=== PATIENT | female | born 1975 | race Caucasian/White ===

== ENCOUNTER 2019-04-01 14:32 | Inpatient (IN) | payer MEDICAID ==
[~2019-04-01] VITALS: Ht 152.4 cm; Wt 72.6 kg
[2019-04-01 14:40] VITALS: BP 134/73
--- NOTE | 2019-04-01 14:50 | NUR ---
PATIENT AMBULATED TO ER BED 1.
--- NOTE | 2019-04-01 14:55 | NUR ---
PT IS A 43 Y/O FEMALE WHO PRESENTS TO THE ED C/O RLQ ABD PAIN. PT STATES THAT SHE HAS BEEN EXPERIENCING SYMPTOMS X4 DAYS. PT REPORT 10/10 ACHING RLQ ABD PAIN THAT RADIATES TO THE BACK AND HEADACHE. PT DENIES CP, SOB, N/V/D. PT AWAKE AND ALERT, RR EVEN/UNLABORED. PT REPOSITIONED FOR COMFORT, BED IN LOWEST POSITION. ER MD DR. WILSON NOTIFIED. WILL CONTINUE TO MONITOR. DENIES PMH NKA
[2019-04-01 15:29] LABS: APPEARANCE,URINE HAZY (CLEAR); BILIRUBIN,URINE NEGATIVE (NEGATIVE); BLOOD, URINE 3+ (NEGATIVE); COLOR,URINE YELLOW (YELLOW); LEUKOCYTE ESTERASE ,URINE 1+ (NEGATIVE); NITRITE, URINE NEGATIVE (NEGATIVE); UGLUCOSE TRACE (NEGATIVE)
[2019-04-01] MEDS ORDERED: MORPHINE SULFATE 2 MG/ML SYR IVP ONE (15:40)
[2019-04-01] MEDS ORDERED: NACL 0.9% 1,000 ML IV ONE (15:40)
[2019-04-01] MEDS ORDERED: ONDANSETRON 4 MG/2 ML VIAL IVP ONE (15:40)
[2019-04-01] MEDS ORDERED: KETOROLAC 30 MG/ML VIAL IVP ONE (15:40)
[2019-04-01] MEDS ORDERED: NACL 0.9% 1,000 ML IV SCH (15:40)
[2019-04-01 15:41] LABS: BARBITURATE, URINE NEG. ng/ml (NEG <=200); BENZODIAZEPINE, URINE NEG. ng/mL (NEG <=200); CANNABINOID, URINE NEG. ng/mL (NEG <=50); COCAINE, URINE NEG. ng/mL (NEG <=300); OPIATE, URINE NEG. ng/mL (NEG <=2000); PHENCYCLIDINE SCREEN,URINE NEG. ng/mL (NEG <=25)
--- NOTE | 2019-04-01 15:50 | NUR ---
PT IS RESTING IN BED WITH EYE OPEN. PT STATES SHE IS FEELING BETTER. PAIN 5/10. VSS.
[2019-04-01 15:55] LABS: RBC,URINE 20-50 /HPF (0-5); WBC,URINE 16-25 (MOD) /HPF (0-5)
[2019-04-01 16:27] LABS: BASOPHILS % (AUTO) 0.4 % (0.0-2.0); EOSINOPHILS % (AUTO) 0.1 % (0.0-4.0); HEMATOCRIT 37.3 % (36-48); HEMOGLOBIN 12.5 g/dL (12.0-16.0); LYMPHOCYTES # (AUTO) 1.2 K/uL (2.5-16.5); LYMPHOCYTES % (AUTO) 13.2 % (20.5-51.1); MEAN CORPUSCULAR HEMOGLOBIN 31 pg (27-31); MEAN CORPUSCULAR HGB CONC 34 g/dL (33-37); MEAN CORPUSCULAR VOLUME 91.2 fL (80-94); MONOCYTES # (AUTO) 1.1 K/uL (0.8-1.0); MONOCYTES % (AUTO) 11.2 % (1.7-9.3); NEUTROPHILS # (AUTO) 7.1 K/uL (1.8-7.7); NEUTROPHILS % (AUTO) 75.1 % (42.2-75.2); PLATELET COUNT (AUTO) 237 K/uL (140-450); RED BLOOD CELL COUNT(AUTO) 4.09 MIL/uL (4.20-5.40); RED CELL DISTRIBUTION WIDTH 12.4 % (11.6-13.7); WHITE BLOOD COUNT (AUTO) 9.4 K/uL (4.8-10.8)
--- NOTE | 2019-04-01 16:45 | NUR ---
PT IS RESTING IN BED WITH EYES OPEN. VSS.
[2019-04-01 16:49] LABS: ALBUMIN 3.3 g/dL (3.4-5.0); ANION GAP 13.3 (8-16); CARBON DIOXIDE 24.9 mmol/L (21-32); CREATININE 0.6 mg/dL (0.6-1.3); POTASSIUM 4.2 mmol/L (3.5-5.1); TOTAL BILIRUBIN 0.6 mg/dL (0.0-1.0)
[2019-04-01] MEDS ORDERED: cefTRIAXone 1,000 MG VIAL ONE (17:18)
--- NOTE | 2019-04-01 17:55 | NUR ---
PT IS RESTING IN BED WITH EYES OPEN. VSS.
[2019-04-01] MEDS ORDERED: IBUP-2809 PO (18:07)
[2019-04-01] MEDS ORDERED: ONDANSETRON 4 MG/2 ML VIAL IM/IVP PRN (18:10)
[2019-04-01] MEDS ORDERED: HYDROcodone/APAP 7.5/325 MG 1 TAB PO PRN (18:10)
[2019-04-01] MEDS ORDERED: LORazepam 2 MG/ML VIAL IM/IVP PRN (18:10)
[2019-04-01] MEDS ORDERED: FAMOTIDINE 20 MG/2 ML VIAL IV PRN (18:10)
[2019-04-01] MEDS ORDERED: ACETAMINOPHEN 325 MG TAB PO PRN (18:10)
[2019-04-01] MEDS ORDERED: MORPHINE SULFATE 2 MG/ML SYR IVP PRN (18:10)
[2019-04-01] MEDS ORDERED: IBUP-2213 PO (18:21)
[2019-04-01 18:56] LABS: PROTHROMBIN TIME 9.9 secs (10.8-13.4)
[2019-04-01 19:09] LABS: ALBUMIN 3.2 g/dL (3.4-5.0); CHOL/HDL RATIO 2.8 (1-4.5); FREE T4 (FREE THYROXINE) 1.15 ng/dL (0.76-1.46); MAGNESIUM 1.8 mg/dL (1.8-2.4); THYROID STIMULATING HORMONE 0.5 uIU/mL (0.34-3.74)
--- NOTE | 2019-04-01 19:21 | NUR ---
Patient will be admitted to care of Dr. Villafana. Admited to TELE. Will go to room 105A. Belongings list completed. Report to BARRIE Alva.
--- NOTE | 2019-04-01 19:30 | NUR ---
RECEIVED BEDSIDE REPORT FROM DIRECTOR TELECOMMUNICATIONS. WILL Isbell4. PT IS IRISH SPEAKING ONLY ON ROOM AIR. RESPIRATIONS ARE EQUAL AND UNLABORED. LUNG SOUNDS ARE CLEAR AND SKIN IS INTACT. PATIENT IS AMBULATORY. C/C RUQ PAIN STATES TOOK IBUPROFEN WITH SOME RELIEVE. STATES PAIN TOLERABLE AT THIS TIME. IV ON LAC 20G NS BOLUS STILL INFUSING. PLAN OF CARE DISCUSSED WITH PATIENT AND FAMILY. MRSA SWAB OBTAINED. INITIAL VS:98.0, 17, 99RA. HR 87 111/76.
[2019-04-01 19:31] VITALS: BP 111/76
--- NOTE | 2019-04-01 20:00 | NUR ---
NEW BAG OF IVF NOW INFUSING PER ORDERS. OFFERED PATIENT A SANDWICH AND JELLO. PATIENT SITTING IN BED EATING. NO S/S OF DISTRESS. CALL LIGHT IS WITHIN REACH.
[2019-04-01] MEDS: NACL 0.9% 1,000 ML IV SCH (20:32)
--- NOTE | 2019-04-01 22:00 | NUR ---
PATIENT RESTING COMFORTABLY IN BED. DENIES PAIN. STATES ONLY WITH MOVEMENT. CALL LIGHT IS WITHIN REACH. WILL CONTINUE TO MONITOR.
[2019-04-01] MEDS: DOCUSATE SODIUM 100 MG GELCAP PO PRN (23:00)
[2019-04-02] VITALS: BP 101/60
--- NOTE | 2019-04-02 00:13 | NUR ---
VITAL SIGNS ARE WITHIN NORMAL LIMITS. ALL NEEDS MET AT THIS TIME. CALL LIGHT IS WITHIN REACH. WILL CONTINUE TO MONITOR.
--- NOTE | 2019-04-02 02:20 | NUR ---
PATIENT IS SLEEPING IN BED. NO S/S OF DISTRESS.CALL LIGHT IS WITHIN REACH.
[2019-04-02 04:00] VITALS: BP 101/56
--- NOTE | 2019-04-02 04:00 | NUR ---
VITAL SIGNS ARE WITHIN NORMAL LIMITS. NO S/S OF DISTRESS. WILL CONTINUE TO MONITOR.
[2019-04-02] MEDS: NACL 0.9% 1,000 ML IV SCH ×2 (04:45→15:09)
--- NOTE | 2019-04-02 05:30 | NUR ---
PATIENT RESTING COMFORTABLY IN BED. NO S/S OF DISTRESS. CALL LIGHT IS WITHIN REACH.
--- NOTE | 2019-04-02 07:10 | NUR ---
RECEIVED BEDSIDE REPORT FROM ASBESTOS ABATEMENT WORKER NURSE, PT IS ASLEEP AT THIS TIME, NO S/S OF ACUTE DISTRESS OR SOB NOTED. PT IS ON ROOM AIR, SKIN IS INTACT. IV SITE NOTED ON THE L AC, 20 G, INFUSING NS 100 ML/HR, PATENT AND INTACT. PT IS ON A REGULAR DIET. PT IS AMBULATORY AND NOT A FALL RISK. CALL LIGHT IS WITHIN REACH, WILL CONTINUE TO MONITOR.
--- NOTE | 2019-04-02 07:24 | NUR ---
GAVE BEDSIDE REPORT TO DAY RN. PT ENDORSED IN STABLE CONDITION.
[2019-04-02 08:00] VITALS: BP 90/52
--- NOTE | 2019-04-02 08:17 | NUR ---
PATIENT HAS BEEN SCREENED AND CATEGORIZED LOW NUTRITION RISK. PATIENT WILL BE SEEN WITHIN 7 DAYS OF ADMISSION. 04/08/[address]
[2019-04-02] MEDS: LACTOBACILLUS RHAMNOSUS GG 1 EACH CAP PO SCH (08:19)
--- NOTE | 2019-04-02 08:30 | NUR ---
AM MEDS ADMINISTERED; PT WAS C/O OF A HEADACHE, SO GAVE A PRN DOSE OF TYLENOL. WILL REASSESS WITHIN AN HOUR.
--- NOTE | 2019-04-02 13:58 | NUR ---
PT SLEEPING AT THIS TIME. NO S/S OF ANY ACUTE DISTRESS NOTED. WILL CONTINUE TO MONITOR.
--- NOTE | 2019-04-02 15:22 | NUR ---
PT C/O "STINGING" PAIN IN HER R BACK (FLANK) AREA. DR CEDENO SEEING PT AT THIS TIME. VISITOR AT BEDSIDE. WILL MEDICATE PT FOR PAIN.
[2019-04-02 16:00] VITALS: BP 105/66
--- NOTE | 2019-04-02 18:00 | NUR ---
PT HAVING ECHOCARDIOGRAPHY WITH BUBBLE STUDY AT THIS TIME
[2019-04-02] MEDS ORDERED: KETOROLAC 30 MG/ML VIAL IM SCH (18:15)
--- NOTE | 2019-04-02 19:15 | NUR ---
PT ENDORSED TO ACCOUNTING COORDINATOR IN STABLE CONDITION.
--- NOTE | 2019-04-02 19:16 | NUR ---
RECEIVED BEDSIDE REPORT FROM COMMERCIAL CONSTRUCTION SUPERINTENDENT. WILL X4. PT IS [place] SPEAKING ONLY ON ROOM AIR. RESPIRATIONS ARE EQUAL AND UNLABORED. LUNG SOUNDS ARE CLEAR AND SKIN IS INTACT. PATIENT IS AMBULATORY. C/C RUQ PAIN STATES TOOK IBUPROFEN WITH SOME RELIEVE. STATES PAIN TOLERABLE AT THIS TIME. IV ON LAC 20G IVF INFUSING PER ORDERS. PLAN OF CARE DISCUSSED WITH PATIENT AND FAMILY. CALL LIGHT IS WITHIN REACH.
--- NOTE | 2019-04-02 21:30 | NUR ---
PATIENT IS SLEEPING IN BED. NO S/S OF DISTRESS. CALL LIGHT IS WITHIN REACH. WILL CONTINUE TO MONITOR.
[2019-04-02 23:00] VITALS: BP 101/59
--- NOTE | 2019-04-02 23:01 | NUR ---
VITAL SIGNS ARE WITHIN NORMAL LIMITS. ALL NEEDS MET AT THIS TIME. CALL LIGHT IS WITHIN REACH. WILL CONTINUE TO MONITOR.
[2019-04-03] MEDS: KETOROLAC 30 MG/ML VIAL IM SCH ×4 (00:47→17:45)
--- NOTE | 2019-04-03 00:47 | NUR ---
RUBINA TORADOL GIVEN PT STATES PAIN 8/10. ALL SAFETY MEASURES ARE IN PLACE. WILL CONTINUE TO MONITOR.
[2019-04-03] MEDS: NACL 0.9% 1,000 ML IV SCH ×3 (00:52→21:05)
--- NOTE | 2019-04-03 04:00 | NUR ---
PATIENT IS SLEEPING COMFORTABLY IN BED. NO S/S OF DISTRESS. SAFETY MEASURES ARE IN PLACE. WILL CONTINUE TO MONITOR.
--- NOTE | 2019-04-03 07:19 | NUR ---
GAVE BEDSIDE REPORT TO DAY RN. PATIENT ENDORSED IN STABLE CONDITION.
--- NOTE | 2019-04-03 07:20 | NUR ---
RECEIVED BEDSIDE REPORT FROM LOAN FUNDER NURSE. PATIENT IS AWAKE, ALERT AND ORIENTEDX4. MACEDONIAN SPEAKER. NO SIGNS OF DISTRESS ON RA. SKIN IS INTACT. AMBULATORY. CONTINENT. ABLE TO MAKE NEEDS KNOWN. L AC 20G INFUSING NS AT 100. CLEAN, DRY AND INTACT. NO COMPLAINTS AT THIS TIME. WILL CONTINUE TO MONITOR THE PATIENT
[2019-04-03 08:00] VITALS: BP 105/61
[2019-04-03] MEDS: LACTOBACILLUS RHAMNOSUS GG 1 EACH CAP PO SCH (08:41)
--- NOTE | 2019-04-03 08:45 | NUR ---
ADMINISTERED RUBINA MEDS AND PRN PAIN MED. EDUCATED ON SIDE EFFECTS. PATIENT TOLERATED WELL. WILL CONTINUE TO MONITOR THE PATIENT
--- NOTE | 2019-04-03 09:29 | NUR ---
FAMILY AT BEDSIDE. NO SIGNS OF DISTRESS. WILL CONTINUE TO MONITOR THE PATIENT
--- NOTE | 2019-04-03 11:00 | NUR ---
PATIENT RESTING IN BED. NO SIGNS OF DISTRESS. WILL CONTINUE TO MONITOR THE PATIENT
--- NOTE | 2019-04-03 12:10 | NUR ---
ADMINISTERED ORDERED IVF AND RUBINA MEDS. PATIENT TOLERATED WELL. EDUCATED ON SIDE EFFECTS. WILL CONTINUE TO MONITOR THE PATIENT
--- NOTE | 2019-04-03 14:54 | NUR ---
PATIENT IS SLEEPING. NO SIGNS OF DISTRESS. WILL CONTINUE TO MONITOR THE PATIENT
[2019-04-03 16:00] VITALS: BP 99/63
--- NOTE | 2019-04-03 16:17 | NUR ---
PATIENT STILL RESTING IN BED. NO SIGNS OF DISTRESS. WILL CONTINUE TO MONITOR THE PATIENT
--- NOTE | 2019-04-03 17:50 | NUR ---
PATIENT TOOK A SHOWER. PATIENT IS NOW BACK IN BED IN STABLE CONDITION. ADMINISTERED RUBINA MEDS. PATIENT TOLERATED WELL. EDUCATED ON SIDE EFFECTS. WILL CONTINUE TO MONITOR THE PATIENT
[2019-04-03 18:23] LABS: BASOPHILS % (AUTO) 0.2 % (0.0-2.0); EOSINOPHILS # (AUTO) 0.1 K/uL (0-0.4); EOSINOPHILS % (AUTO) 1.5 % (0.0-4.0); HEMATOCRIT 30.9 % (36-48); HEMOGLOBIN 10.3 g/dL (12.0-16.0); LYMPHOCYTES # (AUTO) 2.2 K/uL (2.5-16.5); LYMPHOCYTES % (AUTO) 36.5 % (20.5-51.1); MEAN CORPUSCULAR HEMOGLOBIN 31 pg (27-31); MEAN CORPUSCULAR HGB CONC 33 g/dL (33-37); MEAN CORPUSCULAR VOLUME 91.5 fL (80-94); MONOCYTES # (AUTO) 0.5 K/uL (0.8-1.0); MONOCYTES % (AUTO) 8.6 % (1.7-9.3); NEUTROPHILS # (AUTO) 3.2 K/uL (1.8-7.7); NEUTROPHILS % (AUTO) 53.2 % (42.2-75.2); PLATELET COUNT (AUTO) 207 K/uL (140-450); RED BLOOD CELL COUNT(AUTO) 3.37 MIL/uL (4.20-5.40); RED CELL DISTRIBUTION WIDTH 12.4 % (11.6-13.7)
--- NOTE | 2019-04-03 18:35 | NUR ---
PATIENT SITTING IN BED. FAMILY AT BEDSIDE. WILL CONTINUE TO MONITOR
--- NOTE | 2019-04-03 19:07 | NUR ---
GAVE BEDSIDE REPORT FROM SPECIAL SERVICES COORDINATOR NURSE. PATIENT ENDORSED IN STABLE CONDITION
[2019-04-03 19:12] LABS: ANION GAP 12.3 (8-16); CARBON DIOXIDE 24.6 mmol/L (21-32); CREATININE 0.5 mg/dL (0.6-1.3); POTASSIUM 3.9 mmol/L (3.5-5.1)
[2019-04-03 19:18] LABS: MAGNESIUM 1.7 mg/dL (1.8-2.4); PHOSPHORUS 3.3 mg/dL (2.5-4.9)
--- NOTE | 2019-04-03 19:20 | NUR ---
RECEIVED BEDSIDE REPORT FROM DAY SHIFT NURSE. PATIENT IS AWAKE, ALERT, AND COOPERATIVE. RESPIRATION EVEN UNLABORED ON ROOM AIR. NO DISTRESS NOTED. SKIN IS WARM AND DRY. IV PATENT AND INTACT. DENIES PAIN. AT BEDSIDE. PLAN OF CARE WAS DISCUSSED. ALL SAFETY MEASURES IN PLACE. BED IS AT LOW POSITION. CALL LIGHT WITHIN REACH AND VERBALIZES ITS USE. WILL CONTINUE TO MONITOR.
--- NOTE | 2019-04-03 20:00 | NUR ---
INITIAL ASSESSMENT DONE. VITALS WERE TAKEN. PATIENT IN STABLE CONDITION. NO DISTRESS NOTED. WILL CONTINUE TO MONITOR.
[2019-04-03] MEDS: DOCUSATE SODIUM 100 MG GELCAP PO PRN (20:41)
--- NOTE | 2019-04-03 21:00 | NUR ---
PATIENT COMPLAINED OF CONSTIPATION. PRN STOOL SOFTENER ADMINISTERED PER ORDER. WILL CONTINUE TO MONITOR.
--- NOTE | 2019-04-03 22:30 | NUR ---
CHECKED PATIENT. PATIENT SLEEPING RESPIRATION EVEN UNLABORED ON ROOM AIR. NO DISTRESS NOTED. WILL CONTINUE TO MONITOR.
[2019-04-04] VITALS: BP 103/63
--- NOTE | 2019-04-04 | NUR ---
VITALS WERE TAKEN. PATIENT CONDITION STABLE. NO DISTRESS NOTED. WILL CONTINUE TO MONITOR.
[2019-04-04] MEDS: KETOROLAC 30 MG/ML VIAL IM SCH ×2 (00:01→05:07)
[2019-04-04] MEDS: NACL 0.9% 1,000 ML IV SCH (00:01)
--- NOTE | 2019-04-04 02:00 | NUR ---
CHECKED PATIENT. PATIENT SLEEPING RESPIRATION EVEN UNLABORED ON ROOM AIR. NO DISTRESS NOTED. WILL CONTINUE TO MONITOR.
--- NOTE | 2019-04-04 04:00 | NUR ---
CHECKED PATIENT. PATIENT SLEEPING RESPIRATION EVEN UNLABORED ON ROOM AIR. NO DISTRESS NOTED. WILL CONTINUE TO MONITOR.
[2019-04-04 07:16] LABS: BASOPHILS % (AUTO) 0.2 % (0.0-2.0); EOSINOPHILS # (AUTO) 0.1 K/uL (0-0.4); EOSINOPHILS % (AUTO) 1.5 % (0.0-4.0); HEMATOCRIT 29.6 % (36-48); MEAN CORPUSCULAR HEMOGLOBIN 31 pg (27-31); MEAN CORPUSCULAR HGB CONC 34 g/dL (33-37); MEAN CORPUSCULAR VOLUME 90.9 fL (80-94); MONOCYTES # (AUTO) 0.6 K/uL (0.8-1.0); MONOCYTES % (AUTO) 9.3 % (1.7-9.3); NEUTROPHILS # (AUTO) 3.4 K/uL (1.8-7.7); PLATELET COUNT (AUTO) 210 K/uL (140-450); RED BLOOD CELL COUNT(AUTO) 3.25 MIL/uL (4.20-5.40); RED CELL DISTRIBUTION WIDTH 12.3 % (11.6-13.7); WHITE BLOOD COUNT (AUTO) 6.1 K/uL (4.8-10.8)
--- NOTE | 2019-04-04 07:17 | NUR ---
ENDORSED PATIENT TO DAY SHIFT NURSE FOR CONTINUITY OF CARE. PATIENT IN STABLE CONDITION.
--- NOTE | 2019-04-04 07:18 | NUR ---
RECEIVED BEDSIDE REPORT FROM MACHINE SET UP NURSE. PATIENT IS AWAKE, ALERT AND ORIENTEDX4. SLOV[place] SPEAKER. SKIN IS INTACT. AMBULATORY, CONTINENT. IV L AC 20G INFUSING NS AT 100. CLEAN, DRY AND INTACT. PATIENT ABLE TO MAKE NEEDS KNOWN. BED IN LOW POSITION. CALL LIGHT WITHIN REACH. WILL CONTINUE TO MONITOR THE PATIENT
[2019-04-04 08:00] VITALS: BP 105/61
[2019-04-04 08:02] LABS: ANION GAP 12.9 (8-16); CARBON DIOXIDE 24.2 mmol/L (21-32); CREATININE 0.5 mg/dL (0.6-1.3); POTASSIUM 4.1 mmol/L (3.5-5.1)
[2019-04-04 08:08] LABS: MAGNESIUM 1.7 mg/dL (1.8-2.4); PHOSPHORUS 3.2 mg/dL (2.5-4.9)
[2019-04-04] MEDS ORDERED: LEVO750T2 PO (08:50)
[2019-04-04] MEDS: LACTOBACILLUS RHAMNOSUS GG 1 EACH CAP PO SCH (08:54)
--- NOTE | 2019-04-04 09:00 | NUR ---
ADMINISTERED MEDS. PATIENT TOLERATED WELL. EDUCATED ON SIDE EFFECTS. WILL CONTINUE TO MONITOR THE PATIENT
--- NOTE | 2019-04-04 09:30 | NUR ---
EDUCATED ON DISEASE PROCESS, ABN S/SX, WHEN TO GO TO THE ER, EDUCATED ON MEDS, GAVE PRESCRIPTION, EDUCATED ON FOLLOW UP W PCP AND TO GET REFERRAL TO UROLOGIST. EDUCATED ON PNA VACCINE NOT BEING A CANDIDATE, FLU NOT IN SEASON. PATIENT VERBALIZED UNDERSTANDING. IV REMOVED. TIP INTACT. ID BANDS REMOVED. PATIENT LEFT TO GO HOME IN STABLE CONDITION W FAMILY.
[2019-04-05] MEDS ORDERED: METO25TE2 PO (08:59)
[2019-04-05] MEDS ORDERED: METO50TE2 PO ×2 (09:00)
== END 2019-04-04 09:30 | disposition home or self-care (01) | DRG 463 ==
LOC: MED 14:32 → MTU 18:14
PROVIDERS: ADMIT General Practice; ATTEND General Practice
DX: N12 Tubulo-interstitial nephritis, not specified as acute or chronic (principal); N17.0 Acute kidney failure with tubular necrosis; E44.0 Moderate protein-calorie malnutrition; E87.1 Hypo-osmolality and hyponatremia; E66.9 Obesity, unspecified; I51.7 Cardiomegaly; Z68.31 Body mass index [BMI] 31.0-31.9, adult
CPT/HCPCS: 36415; 80048; 80053; 80305; 81001; 81025; 82040; 82150; 82977; 83036; 83605; 83690; 83735; 83880; 84100; 84439; 84443; 84484; 85025; 85610; 85730; 87040; 87081; 87086; 87186; 96361; 96365; 96375; 99285; J0696; J1885; J2270; J2405; J7030; J7060

== ENCOUNTER 2020-08-31 07:18 | Emergency (ER) | payer MEDICAID ==
[~2020-08-31] VITALS: Ht 157.5 cm; Wt 59.0 kg
[~2020-08-31 07:18] MED LIST: IBUP-2213 PO; LEVO750T2 PO
[2020-08-31 07:22] VITALS: BP 124/79
--- NOTE | 2020-08-31 08:00 | NUR ---
UA COLLECTED. LAB AT BEDSIDE
--- NOTE | 2020-08-31 08:11 | NUR ---
44 Y/O 15 WEEKS PRESENTS WITH HEAVY VAGINAL BLEEDING. PT STATES SHE HAS BEEN HAVING SCANT VAGINAL BLEEDING SINCE BEGINNING OF , BUT LAST NIGHT IT GOT HEAVIER, DENIES ANY CLOTS. DENIES ANY WEAKNESS OR DIZZINESS AT THIS TIME. NO PAIN REPORTED AT THIS TIME. PMH: HTN, DM NKDA
[2020-08-31 08:19] LABS: BASOPHILS % (AUTO) 0.5 % (0.0-2.0); EOSINOPHILS # (AUTO) 0.1 K/uL (0-0.4); EOSINOPHILS % (AUTO) 1.7 % (0.0-4.0); HEMATOCRIT 38.3 % (36-48); HEMOGLOBIN 12.9 g/dL (12.0-16.0); LYMPHOCYTES # (AUTO) 1.5 K/uL (2.5-16.5); LYMPHOCYTES % (AUTO) 26.9 % (20.5-51.1); MEAN CORPUSCULAR HEMOGLOBIN 31 pg (27-31); MEAN CORPUSCULAR HGB CONC 34 g/dL (33-37); MEAN CORPUSCULAR VOLUME 92.1 fL (80-94); MONOCYTES # (AUTO) 0.5 K/uL (0.8-1.0); MONOCYTES % (AUTO) 8.2 % (1.7-9.3); NEUTROPHILS # (AUTO) 3.5 K/uL (1.8-7.7); NEUTROPHILS % (AUTO) 62.7 % (42.2-75.2); PLATELET COUNT (AUTO) 232 K/uL (140-450); RED BLOOD CELL COUNT(AUTO) 4.16 MIL/uL (4.20-5.40); RED CELL DISTRIBUTION WIDTH 12.7 % (11.6-13.7); WHITE BLOOD COUNT (AUTO) 5.6 K/uL (4.8-10.8)
[2020-08-31 09:14] LABS: BILIRUBIN,URINE NEGATIVE (NEGATIVE); BLOOD, URINE 3+ (NEGATIVE); COLOR,URINE YELLOW (YELLOW); LEUKOCYTE ESTERASE ,URINE NEGATIVE (NEGATIVE); NITRITE, URINE NEGATIVE (NEGATIVE); UGLUCOSE NEGATIVE (NEGATIVE)
[2020-08-31 09:17] LABS: APPEARANCE,URINE SLIGHTLY HAZY (CLEAR)
--- NOTE | 2020-08-31 10:11 | NUR ---
PT RESTING IN BED, EQUAL CHEST RISE AND FALL, NO PAIN AT THIS TIME. BED LOCKED AND IN LOWEST POSITION. SIDE RAILS X2.
[2020-08-31 10:17] LABS: RBC,URINE 11-20 (MOD) /HPF (0-5); WBC,URINE 0-5 /HPF (0-5)
[2020-08-31 10:30] LABS: PROTHROMBIN TIME 10.1 secs (10.8-13.4)
--- NOTE | 2020-08-31 12:30 | NUR ---
ANGLE DOING PELVIC EXAM AT BEDSIDE WITH FEMALE RN CHIN STRAP MAKER
[2020-08-31 13:05] VITALS: BP 113/74
--- NOTE | 2020-08-31 13:05 | NUR ---
Patient discharged with v/s stable. Written and verbal after care instructions given and explained. Patient verbalized understanding. Ambulatory with steady gait. All questions addressed prior to discharge. Advised to follow up with PMD.
== END 2020-08-31 13:05 | disposition home or self-care (01) ==
LOC: MED 07:18
DX: O26.851 Spotting complicating pregnancy, first trimester (principal); Z79.899 Other long term (current) drug therapy; Z3A.15 15 weeks gestation of pregnancy
CPT/HCPCS: 36415; 76817; 81001; 81025; 84702; 85025; 85610; 86886; 86900; 86901; 99284

== ENCOUNTER 2021-07-30 16:27 | Emergency (ER) | payer MEDICAID ==
[~2021-07-30] VITALS: Ht 152.4 cm; Wt 73.9 kg
[2021-07-30 16:47] VITALS: BP 144/99
--- NOTE | 2021-07-30 16:51 | NUR ---
TENT 1.
[2021-07-30] MEDS ORDERED: PENI500T20 PO (17:23)
[2021-07-30] MEDS ORDERED: PRED20TA5 PO (17:23)
--- NOTE | 2021-07-30 17:50 | NUR ---
NO NURSING FOUNDRY HAND=VENTIONS NEEDED. SEEN & TREATED BY ARMANI SAN.
[2021-07-30 17:54] VITALS: BP 144/99
--- NOTE | 2021-07-30 17:54 | NUR ---
Patient discharged with v/s stable. Written and verbal after care instructions given and explained. Patient alert, oriented and verbalized understanding of instructions. Ambulatory with steady gait. All questions addressed prior to discharge. ID band removed. Patient advised to follow up with PMD. Rx of PENICILLIN & PREDNISONE given. Patient educated on indication of medication including possible reaction and side effects. Opportunity to ask questions provided and answered.
== END 2021-07-30 17:54 | disposition home or self-care (01) ==
LOC: MED 16:27
DX: J02.9 Acute pharyngitis, unspecified (principal); Z79.2 Long term (current) use of antibiotics; Z79.899 Other long term (current) drug therapy; Z79.1 Long term (current) use of non-steroidal anti-inflammatories (NSAID)
CPT/HCPCS: 99283

== ENCOUNTER 2024-02-11 06:50 | Emergency (ER) | payer MEDICAID ==
[~2024-02-11] VITALS: Ht 152.4 cm; Wt 99.8 kg
[~2024-02-11 06:50] MED LIST changes: +PENI500T20 PO; +PRED20TA5 PO
[2024-02-11 07:08] VITALS: BP 150/88; PULSE 104; RESP 16; TEMP 97.4; O2SAT 100
[2024-02-11] MEDS: KETOROLAC 60 MG/2 ML VIAL IM ONE (08:10)
[2024-02-11 08:11] LABS: BASOPHILS % (AUTO) 0.2 % (0.0-2.0); EOSINOPHILS % (AUTO) 0.3 % (0.0-4.0); HEMATOCRIT 38.9 % (36-48); HEMOGLOBIN 13.3 g/dL (12.0-16.0); LYMPHOCYTES % (AUTO) 11.7 % (20.5-51.1); MEAN CORPUSCULAR HEMOGLOBIN 31 pg (27-31); MEAN CORPUSCULAR HGB CONC 34 g/dL (33-37); MEAN CORPUSCULAR VOLUME 89.2 fL (80-94); MONOCYTES # (AUTO) 0.5 K/uL (0.8-1.0); MONOCYTES % (AUTO) 6.5 % (1.7-9.3); NEUTROPHILS # (AUTO) 6.7 K/uL (1.8-7.7); NEUTROPHILS % (AUTO) 81.3 % (42.2-75.2); PLATELET COUNT (AUTO) 216 K/uL (140-450); RED BLOOD CELL COUNT(AUTO) 4.37 MIL/uL (4.20-5.40); RED CELL DISTRIBUTION WIDTH 13.5 % (11.6-13.7); WHITE BLOOD COUNT (AUTO) 8.2 K/uL (4.8-10.8)
[2024-02-11 08:15] LABS: ANION GAP 17.1 (8-16); CALCIUM 8.5 mg/dL (8.5-10.1); CARBON DIOXIDE 22.6 mmol/L (21-32); CREATININE 0.5 mg/dL (0.6-1.3); POTASSIUM 3.7 mmol/L (3.5-5.1)
[2024-02-11 08:20] LABS: ALBUMIN 3.6 g/dL (3.4-5.0); BILIRUBIN,DIRECT 0.1 mg/dL (0.0-0.3); TOTAL BILIRUBIN 0.4 mg/dL (0.0-1.0); TOTAL PROTEIN, SERUM 7.7 g/dL (6.4-8.2)
[2024-02-11] MEDS ORDERED: TRAM-748 PO (09:12)
[2024-02-11 09:30] VITALS: BP 150/88; PULSE 104; RESP 16; TEMP 97.4; O2SAT 100
== END 2024-02-11 09:30 | disposition home or self-care (01) ==
LOC: MED 06:50
DX: K80.20 Calculus of gallbladder without cholecystitis without obstruction (principal); D25.9 Leiomyoma of uterus, unspecified; Z79.1 Long term (current) use of non-steroidal anti-inflammatories (NSAID); Z79.899 Other long term (current) drug therapy
CPT/HCPCS: 36415; 74176; 80048; 80076; 81002; 81025; 83690; 85025; 96372; 99285; J1885